=== PATIENT | female | born 1955 | race Caucasian/White ===

== ENCOUNTER 2024-09-11 02:37 | Emergency (ER) | payer OTHER, SELFPAY ==
[2024-09-11 02:43] VITALS: BP 140/70
[2024-09-11 03:08] VITALS: BMI 22.2
[2024-09-11 03:09] LABS: % Basophils 1.2 % (0-2); % Immature Granulocytes 0.3 % (0-0.5); % Lymphocytes 36.2 % (20.5-51.1); % Monocytes 8.2 % (1.7-9.3); % Neutrophils 50.1 % (42.2-75.2); Absolute Basophils 0.1 10^3/uL (0-0.2); Absolute Eosinophils 0.2 10^3/uL (0-0.7); Absolute Lymphocytes 2.1 10^3/uL (1.2-3.4); Absolute Monocytes 0.5 10^3/uL (0.1-0.6); Absolute Neutrophils 2.9 10^3/uL (1.4-6.5); Hematocrit 37.4 % (37.0-47.0); Hemoglobin 13.2 g/dL (12.0-16.0); Mean Corp Hgb Conc. 35.3 g/dL (33.0-37.0); Mean Corpuscular Hgb 31.6 pg (27.0-31.0); Mean Corpuscular Volume 89.5 fL (81.0-99.0); Mean Platelet Volume 8.9 fL (7.4-10.4); Nucleated Red Blood Cells % 0 %; Platelet Count 299 10^3/uL (130-400); Red Blood Cell Count 4.18 10^6/uL (4.20-5.40); Red Cell Dist. Width 12.2 % (11.5-14.5); White Blood Cell Count 5.7 10^3/uL (4.8-10.8)
[2024-09-11 03:15] VITALS: BP 126/84
[2024-09-11 03:22] LABS: ALT (SGPT) 17 U/L (0-35); AST (SGOT) 23 U/L (14-36); Albumin 4.4 g/dl (3.5-5.0); Alkaline Phosphatase 71 U/L (38-126); Blood Urea Nitrogen 12 mg/dl (7-17); Calcium 9.6 mg/dl (8.4-10.2); Carbon Dioxide 27 mmol/L (22-30); Chloride 102 mmol/L (98-107); Estimated Creatinine Clearance 78 ml/min; Glucose 111 mg/dl (70-99); Potassium 4.2 mmol/L (3.5-5.1); Sodium 139 mmol/L (135-145); Total Bilirubin 0.3 mg/dl (0.2-1.3); Total Protein 6.9 g/dl (6.3-8.2); eGFR > 60.00
[2024-09-11 03:29] LABS: Troponin I < 0.012 ng/ml
[2024-09-11 04:00] VITALS: BP 137/91
--- NOTE | 2024-09-11 04:27 | ED.GENMED ---
History of Present Illness
General
Chief Complaint: Cardiac Symptoms
Source: patient and family
Exam Limitations: none
Time Seen by Provider: 09/11/24 03:22
Nursing documentation reviewed up to this point in time: agreed with
History of Present Illness
History of Present Illness:
This is a pleasant 68-year-old female who presents with left wrist pain that radiates up into her left jaw. She states that this awakened him from sleep around 11:30 PM this evening. She states that the pain returned but was only located in her
distal arm past the elbow. Denies any other complaints at this time. Denies fever, chills, nausea or vomiting. Patient does not have a cardiac history. Her mom had an AK at age 50. Patient denies tobacco or drug use. states that
yesterday they brought out the laptop and she was typing on it. She noticed some similar wrist pain at that time.
Review of Systems
Review of Systems
Allergies reviewed?: Yes
All Other Systems: ROS reviewed and negative except as documented in HPI and ROS
Constitutional: Reports no symptoms
EENT: Reports no symptoms
Respiratory: Reports no symptoms
Cardiac: Denies chest pain
ABD/GI: Reports no symptoms
: Reports no symptoms
Musculoskeletal: Reports joint pain and muscle stiffness
Skin: Reports no symptoms
Neurological: Reports no symptoms
Endocrine: Reports no symptoms
Hematologic/Lymphatic: Reports no symptoms
Psychiatric: Reports no symptoms
Phy Exam
General Physical Exam
General Presentation: well appearing and no apparent distress
General Skin: warm and dry
General Habitus: normal
General Mental: alert
General Hydration: appears well hydrated
ENT Exam
ENT Exam: EOMI, pharynx normal, neck supple and normocephalic
Eye Exam
Eye Exam: PERRL, cornea clear and conjunctiva normal
Cardiovascular Exam
Cardiovascular Exam: regular rate/rhythm, no edema, no murmur and normal peripheral pulses
Pulmonary Exam
Pulmonary Exam: lungs clear, no respiratory distress, no rales, no crackles, no rhonchi, no stridor, no wheezing and no cough
Gastrointestinal Exam
Gastrointestinal Exam: normal bowel sounds, non tender, soft, no organomegaly, no pulsatile mass and non distended
Neurological Exam
Neurological Exam: alert, oriented x3, no motor deficits and speech normal
Musculoskeletal Exam
Musculoskeletal Exam: full ROM, no edema and other (Left wrist has tenderness to palpation over the carpal tunnel. Full range of motion. No scaphoid tenderness. Good muscle strength.)
Skin Exam
Skin Exam: normal color, warm/dry, no rash and no petechia
Psychiatric Exam
Psychiatric Exam: normal mood/affect
Course
Orders/Labs/Results
Orders:
Orders
09/11/24 02:46
Electrocardiogram (*1) Urgent
Reason for Study: Other
Other Reason for Exam: LEFT ARM PAIN
09/11/24 02:47
EKG- Treatment ONCE
09/11/24 02:58
Complete Blood Count/With Diff Urgent
Comprehensive Metabolic Panel Urgent
Troponin I Urgent
09/11/24 03:11
Chest [CR Chest - 2 Views ] Urgent
Comment:
Reason For Exam: chest pain
09/11/24 05:35
Troponin I Urgent
Abnormal Lab Results
09/11/24
02:58
RBC 4.18 L 10^6/uL
(4.20-5.40)
MCH 31.6 H pg
(27.0-31.0)
Glucose 111 H mg/dl
(70-99)
09/11/24 02:58
09/11/24 02:58
Vital Signs
Initial and Last Documented VS:
Initial Vital Signs
Temp Pulse Resp BP Pulse Ox
98 F 84 20 140/70 100
09/11/24 02:43 09/11/24 02:43 09/11/24 02:43 09/11/24 02:43 09/11/24 02:43
Last Documented Vital Signs
Temp Pulse Resp BP Pulse Ox
98 F 84 20 140/70 100
09/11/24 02:43 09/11/24 02:43 09/11/24 02:43 09/11/24 02:43 09/11/24 02:43
*Pulse Oximetry
Patient hypoxic: no
*Critical Care Note
Total Time (30-74mins, 75-104mins- exclusive of procedures): Not Applicable
ED Attending Note
-
Portions of this chart may have been created with voice recognition software.� Occasional wrong word or��sound alike� substitutions may have occurred due to the inherent limitations of voice recognition software.
Discharge Plan
Departure
Patient Disposition: Home (Routine Discharge)
Date of Disposition: 09/11/24
Time of Disposition: 06:35
Patient with high blood pressure during this ER visit?: Yes
Condition: Good
Discharge Problem:
Chest pain, Acute wrist pain
Instructions: Chest Pain (DC), Chest Pain CBC Follow Up, BLOOD PRESSURE, Muscle and Bone Pain (DC)
Prescriptions:
No Action
pantoprazole [Protonix] 40 mg tablet,delayed release (DR/EC)
40 mg PO DAILY Qty: 20 0RF
Referrals:
Catrachita Nicholas I., DO [Active] - As needed
Sirena Naqvi, DO [Family Provider] -
Activity Restrictions/Additional Instructions:
It was a pleasure meeting you and taking part in your care. We hope for your continued healing and wellness.
Please read discharge instructions in their entirety. However, they are for general education and may not describe your exact diagnosis at discharge. Information on your ER visit and medical conditions were discussed with you along with appropriate
follow up information...
If indicated, please take your medications as instructed and indicated on discharge paperwork.
Please schedule a follow up appointment as directed. Call to schedule an appointment
Please return to the emergency department with ANY change in, persisting, or worsening of symptoms. If any of your symptoms do not improve, or persist, or become more severe within 6-12 hours, please return to the emergency department for further
care.
Please return to the emergency department if you develop a headache, neck pain/stiffness, fever greater than 100.4F, chest pain, shortness of breath, persistent nausea, vomiting, slurred speech, difficulty walking, numbness/tingling, weakness, signs
of infection or any other symptoms that are worrisome to you.
If you have any questions or concerns please do not hesitate to call the Hospital at or E-mail me directly at [email or web address]
Interventions
Interventions:
*Risk Screen - Suicide Last Done: 09/11/24 02:43
*General Assessment Last Done: 09/11/24 03:08
*Neglect/Abuse Screening Last Done: 09/11/24 02:43
ED- Fall Risk Assessment Last Done: 09/11/24 03:08
*ED COVID-19 Vaccine History Last Done: 09/11/24 03:08
ED-Skin Assessment Last Done: 09/11/24 03:08
ED- Pulmonary Assessment Last Done: 09/11/24 03:08
ED-Musculoskeletal Assessment Last Done: 09/11/24 03:08
ED- Cardiac Assessment Last Done: 09/11/24 03:08
Discharge Date and Time
Print Language: ROMANIAN
[2024-09-11 05:00] VITALS: BP 111/79
[2024-09-11 06:00] VITALS: BP 136/67
[2024-09-11 06:14] LABS: Troponin I 0.014 ng/ml
== END 2024-09-11 07:00 | disposition home or self-care (01) ==
LOC: EMR 02:37
PROVIDERS: EMERGENCY PHYSICIAN Student in an Organized Health Care Education/Training Program; FAMILY PHYSICIAN Family Medicine
DX: R07.9 Chest pain, unspecified (principal); M25.532 Pain in left wrist
CPT/HCPCS: 99285; 71046; 80053; 84484; 85025; 93005